=== PATIENT | male | born 1995 | race American Indian/Alaskan Native ===

== ENCOUNTER 2019-07-11 22:10 | Emergency (ER) | payer SELFPAY ==
[2019-07-11] MEDS ORDERED: ACETAMINOPHEN 325 MG TAB PO ONE (23:20)
[2019-07-11] MEDS ORDERED: ACETAMINOPHEN 325 MG TAB ONE (23:43)
[2019-07-12 00:58] VITALS: BP 135/78
[2019-07-12] MEDS ORDERED: ONDANSETRON 4 MG ODT TAB PO ONE (01:00)
[2019-07-12] MEDS ORDERED: ONDANSETRON 4 MG ODT TAB ONE (01:02)
[2019-07-12 01:49] LABS: Hematocrit 40.7 % (35.5-45.6); Hemoglobin 13.2 gm/dl (11.8-15.2); Mean Corpuscular HGB Conc 33 % (32-34); Platelet Count 207 K/mm3 (140-440); Red Blood Count 5.97 M/mm3 (3.65-5.03); Red Cell Distribution Width 16.4 % (13.2-15.2)
[2019-07-12 02:06] LABS: Mean Corpuscular Volume 68 fl (84-94)
[2019-07-12 02:17] LABS: Alanine Aminotransferase 26 units/L (7-56); Albumin 5.2 g/dL (3.9-5); BUN/Creatinine Ratio 16; Blood Urea Nitrogen 16 mg/dL (9-20); Calcium 10.2 mg/dL (8.4-10.2); Hemolysis Index 1
[2019-07-12 03:00] LABS: Basophils % (Manual) 0 % (0.0-1.8); Eosinophils % (Manual) 0 % (0.0-4.3); Total Cells Counted 100
[2019-07-12 03:01] LABS: Anisocytosis Few; Poikilocytosis Few
[2019-07-12 03:02] LABS: Platelet Estimate Consistent w Auto
[2019-07-12] MEDS ORDERED: SODIUM CHLORIDE 0.9% 1000 ML 1,000 ML IV ONE (04:57)
--- NOTE | 2019-07-12 05:05 | Emergency Department Report ---
ED Abdominal Pain HPI - General Chief Complaint: Abdominal Pain Stated Complaint: FOOD VIRUS Time Seen by Provider: 07/12/19 04:51 Source: patient Mode of arrival: Ambulatory Limitations: No Limitations - History of Present Illness Severity scale (0 -10): 10 - Related Data Previous Rx's Medication Instructions Recorded Last Taken Type Acetaminophen [Acetaminophen TAB] 1,000 mg PO Q6HR #30 tablet 07/12/19 Unknown Rx Dicyclomine [Bentyl] 10 mg PO QID #30 capsule 07/12/19 Unknown Rx Ondansetron [Zofran Odt] 4 mg PO Q8HR PRN #12 tab.rapdis 07/12/19 Unknown Rx Allergies Allergy/AdvReac Type Severity Reaction Status Date / Time No Known Allergies Allergy Verified 07/11/19 23:49 ED Review of Systems ROS: Stated complaint: FOOD VIRUS Other details as noted in HPI Constitutional: denies: chills, fever Eyes: denies: eye pain, eye discharge, vision change ENT: denies: ear pain, throat pain Respiratory: denies: cough, shortness of breath, wheezing Cardiovascular: denies: chest pain, palpitations Endocrine: no symptoms reported Gastrointestinal: abdominal pain, nausea, vomiting, diarrhea Genitourinary: denies: urgency, dysuria Musculoskeletal: denies: back pain, joint swelling, arthralgia ED Past Medical Hx - Past Medical History Previous Medical History?: No - Surgical History Past Surgical History?: No - Social History Smoking Status: Never Smoker - Medications Home Medications: Home Medications Medication Instructions Recorded Confirmed Last Taken Type Acetaminophen [Acetaminophen TAB] 1,000 mg PO Q6HR #30 tablet 07/12/19 Unknown Rx Dicyclomine [Bentyl] 10 mg PO QID #30 capsule 07/12/19 Unknown Rx Ondansetron [Zofran Odt] 4 mg PO Q8HR PRN #12 tab.rapdis 07/12/19 Unknown Rx ED Physical Exam - General Limitations: No Limitations ED Course Vital Signs 07/12/19 00:56 Temperature 97.2 F L Pulse Rate 64 Respiratory 18 Rate Blood Pressure 135/78 O2 Sat by Pulse 100 Oximetry ED Medical Decision Making - Lab Data Result diagrams: 07/12/19 01:22 07/12/19 01:22 Lab Results 07/12/19 07/12/19 Range/Units 01:22 01:22 WBC 12.8 H (4.5-11.0) K/mm3 RBC 5.97 H (3.65-5.03) M/mm3 Hgb 13.2 (11.8-15.2) gm/dl Hct 40.7 (35.5-45.6) % MCV 68 L (84-94) fl MCH 22 L (28-32) pg MCHC 33 (32-34) % RDW 16.4 H (13.2-15.2) % Plt Count 207 (140-440) K/mm3 Add Manual Diff Complete Total Counted 100 Seg Neutrophils % Aligner Seg Neuts % (Manual) 92.0 H (40.0-70.0) % Band Neutrophils % 0 % Lymphocytes % (Manual) 6.0 L (13.4-35.0) % Reactive Lymphs % (Man) 0 % Monocytes % (Manual) 2.0 (0.0-7.3) % Eosinophils % (Manual) 0 (0.0-4.3) % Basophils % (Manual) 0 (0.0-1.8) % Metamyelocytes % 0 % Myelocytes % 0 % Promyelocytes % 0 % Blast Cells % 0 % Nucleated RBC % Not Reportable Seg Neutrophils # Man 11.8 H (1.8-7.7) K/mm3 Band Neutrophils # 0.0 K/mm3 Lymphocytes # (Manual) 0.8 L (1.2-5.4) K/mm3 Abs React Lymphs (Man) 0.0 K/mm3 Monocytes # (Manual) 0.3 (0.0-0.8) K/mm3 Eosinophils # (Manual) 0.0 (0.0-0.4) K/mm3 Basophils # (Manual) 0.0 (0.0-0.1) K/mm3 Metamyelocytes # 0.0 K/mm3 Myelocytes # 0.0 K/mm3 Promyelocytes # 0.0 K/mm3 Blast Cells # 0.0 K/mm3 WBC Morphology Not Reportable Hypersegmented Neuts Not Reportable Hyposegmented Neuts Not Reportable Hypogranular Neuts Not Reportable Smudge Cells Not Reportable Toxic Granulation Not Reportable Toxic Vacuolation Not Reportable Dohle Bodies Not Reportable Pelger-Huet Anomaly Not Reportable Roxana Rods Not Reportable Platelet Estimate Consistent w auto Clumped Platelets Not Reportable Plt Clumps, EDTA Not Reportable Large Platelets Not Reportable Giant Platelets Not Reportable Platelet Satelliting Not Reportable Plt Morphology Comment Not Reportable RBC Morphology Not Reportable Dimorphic RBCs Not Reportable Polychromasia Not Reportable Hypochromasia Not Reportable Poikilocytosis Few Anisocytosis Few Microcytosis Not Reportable Macrocytosis Not Reportable Spherocytes Not Reportable Pappenheimer Bodies Not Reportable Sickle Cells Not Reportable Target Cells Not Reportable Tear Drop Cells Not Reportable Ovalocytes Not Reportable Helmet Cells Not Reportable Sabillon-[employer]ry Bodies Not Reportable [place] Rings Not Reportable Ramone Cells Not Reportable Bite Cells Not Reportable Crenated Cell Not Reportable Elliptocytes Not Reportable Acanthocytes (Spur) Not Reportable Rouleaux Not Reportable Hemoglobin C Crystals Not Reportable Schistocytes Not Reportable Malaria parasites Not Reportable Saman Bodies Not Reportable Hem Pathologist Commnt No Sodium 138 (137-145) mmol/L Potassium 4.9 (3.6-5.0) mmol/L Chloride 97.7 L (98-107) mmol/L Carbon Dioxide 25 (22-30) mmol/L Anion Gap 20 mmol/L BUN 16 (9-20) mg/dL Creatinine 1.0 (0.8-1.5) mg/dL Estimated GFR > 60 ml/min BUN/Creatinine Ratio 16 % Glucose 105 H (75-100) mg/dL Calcium 10.2 (8.4-10.2) mg/dL Total Bilirubin 0.80 (0.1-1.2) mg/dL AST 38 (5-40) units/L ALT 26 (7-56) units/L Alkaline Phosphatase 56 (35-129) units/L Total Protein 8.5 H (6.3-8.2) g/dL Albumin 5.2 H (3.9-5) g/dL Albumin/Globulin Ratio 1.6 % - Radiology Data Radiology results: report reviewed, image reviewed Ordering Physician: BHARGAV HAYES NP Date of Service: 07/12/19 Procedure(s): XR abdomen 1V ap Accession Number(s): [id number] cc: BHARGAV HAYES NP Fluoro Time In Minutes: ABDOMEN 1 VIEW(S) INDICATION / CLINICAL INFORMATION: Abdominal pain. COMPARISON: None. FINDINGS: TUBES / LINES: None. BOWEL GAS PATTERN: The bowel gas pattern appears nonobstructive. ADDITIONAL FINDINGS: Evaluation of bony structures demonstrates no evidence of acute bony abnormality. IMPRESSION: 1. No evidence of acute intra-abdominal process. Signer Name: Jing Liz MD Signed: 07/12/2019 5:31 AM Workstation Name: [id number] Transcribed By: EB Dictated By: Jing Liz MD Electronically Authenticated By: Jing Liz MD Signed Date/Time: 07/12/19530 DD/ 9 TD/TT: - Medical Decision Making Yesterday patient states pain is improved, patient is tolerating by mouth intake without nausea and vomiting there is no fever at this time, labs noted for mild dehydration, KUB normal nonobstructive gas pattern. Plan DC to home continue to hydrate the patient continues to denies dysuria ,frequency ,urgency there is no penile discharge Critical care attestation.: If time is entered above; I have spent that time in minutes in the direct care of this critically ill patient, excluding procedure time. ED Disposition Clinical Impression: Nausea & vomiting Qualifiers: Vomiting type: unspecified Vomiting Intractability: non-intractable Qualified Code(s): R11.2 - Nausea with vomiting, unspecified Disposition: DC-01 TO HOME OR SELFCARE Is pt being admited?: No Does the pt Need Aspirin: No Condition: Stable Instructions: Acute Nausea and Vomiting (ED), Magnesium Hydroxide (By mouth) Prescriptions: Acetaminophen [Acetaminophen TAB] 1,000 mg PO Q6HR #30 tablet Dicyclomine [Bentyl] 10 mg PO QID #30 capsule Ondansetron [Zofran Odt] 4 mg PO Q8HR PRN #12 tab.rapdis PRN Reason: Nausea And Vomiting Referrals: [facility] [Outside] - 3-5 Days Forms: Work/School Release Form(ED) Time of Disposition: 06:12
--- NOTE | 2019-07-12 05:35 | XRay Report ---
ABDOMEN 1 VIEW(S) INDICATION / CLINICAL INFORMATION: Abdominal pain. COMPARISON: None. FINDINGS: TUBES / LINES: None. BOWEL GAS PATTERN: The bowel gas pattern appears nonobstructive. ADDITIONAL FINDINGS: Evaluation of bony structures demonstrates no evidence of acute bony abnormality . IMPRESSION: 1. No evidence of acute intra-abdominal process. Signer Name: Jing Lzi MD Signed: 07/12/2019 5:31 AM Workstation Name: [id number]
== END 2019-07-12 06:40 | disposition home or self-care (01) ==
LOC: ED 22:10
DX: R11.2 Nausea with vomiting, unspecified (principal); Z79.899 Other long term (current) drug therapy
CPT/HCPCS: 36415; 74018; 80053; 85007; 85025; 96360; 99284; J7030; Q0162